=== PATIENT | female | born 1955 | race Caucasian/White ===

== ENCOUNTER 2019-08-15 10:49 | Outpatient (RCR) | payer BC, SELFPAY ==
[2019-08-15 10:56] VITALS: BMI 55.0
[2019-08-15 10:57] VITALS: BMI 55.0
== END 2019-11-13 23:59 | disposition home or self-care (01) ==
LOC: ANHDMC 10:49
PROVIDERS: PCP Family Medicine Adolescent Medicine; Visit Provider Family Medicine Adolescent Medicine
DX: E11.42 Type 2 diabetes mellitus with diabetic polyneuropathy (principal); Z71.3 Dietary counseling and surveillance
CPT/HCPCS: 97802

== ENCOUNTER 2019-10-18 09:02 | Outpatient (CLI) | payer BC, SELFPAY ==
--- NOTE | 2019-10-21 12:52 | WPDPFTINT ---
PFT Interpretation PFT Interpretation: DOS: 10/18/2019 REQUESTING: Dr. Menard REASON FOR TESTING: wheezing PULMONARY FUNCTION TESTS Spirometry: FEV1 66%, mildly decreased. FVC 62%, mildly decreased. FEV1% is 78%, normal. RSN40-56% is 41%, severely decreased. There is a 37% increase in small airways flows with bronchodilator. Lung volumes: TLC 83%, normal. RV/TLC is increased consistent with air trapping. Normal airway resistance. Diffusion: DLCO is 71%, mildly decreased. Flow volume loop: Scooping of the expiratory limb. IMPRESSION: Small airways pattern with robust response to bronchodilator, air trapping and mild decreased in diffusion. In the proper clinical setting, this pattern may be seen in asthma. Clinical correlation is recommended. Jeana Aguirre MD
== END 2019-10-18 09:03 | disposition home or self-care (01) ==
LOC: ANHPFT 09:03
PROVIDERS: PCP Family Medicine Adolescent Medicine; Visit Provider Family Medicine Adolescent Medicine
DX: R06.2 Wheezing (principal); R94.2 Abnormal results of pulmonary function studies
CPT/HCPCS: 94060; 94726; 94729

== ENCOUNTER 2019-10-23 13:55 | Outpatient (CLI) | payer BC, SELFPAY ==
--- NOTE | ~2019-10-23 | US_ITS ---
EXAMINATION: US arterial ankle brachial ind DATE: 10/23/2019 14:45 INDICATION: Claudication. Numbness and tingling. Diabetes. Bilateral ankle swelling, right greater t qureshi left. TECHNIQUE: Segmental pressures and plethysmographic and Doppler waveforms of the brachial and lower e xtremity arteries were obtained. COMPARISON: None. FINDINGS: Right and left brachial artery pressures of 185 mm Hg and 175 mm Hg, respectively, are concordant (no rmal difference <= 30 mmHg). The right ankle-brachial index (DONNA) is 0.90 (normal >= 0.9-1.0). The right great toe-brachial index (TBI) is 0.66 (normal >= 0.65). Arterial Doppler waveforms are biphasic. The left DONNA is 0.92. The left TBI is 0.62. Arterial Doppler waveforms are biphasic. IMPRESSION: Right and left DONNA of 0.90 and 0.92, within normal limits Normal right TBI: 0.66 Mildly decreased left TBI: 0.62 Reviewed, dictated and finalized at [facility]. Reviewed, dictated and finalized at location B.
== END 2019-10-23 13:56 | disposition home or self-care (01) ==
PROVIDERS: PCP Family Medicine Adolescent Medicine; Visit Provider Orthopaedic Surgery
DX: I73.9 Peripheral vascular disease, unspecified (principal)
CPT/HCPCS: 93922

== ENCOUNTER 2019-11-21 10:47 | Outpatient (RCR) | payer BC, SELFPAY ==
[2019-11-21 10:56] VITALS: BMI 48.5
== END 2020-02-10 09:39 | disposition home or self-care (01) ==
LOC: ANHDMC 10:47
PROVIDERS: PCP Family Medicine Adolescent Medicine; Visit Provider Family Medicine Adolescent Medicine
DX: E11.42 Type 2 diabetes mellitus with diabetic polyneuropathy (principal); Z71.3 Dietary counseling and surveillance
CPT/HCPCS: 97803

== ENCOUNTER 2019-12-11 08:41 | Outpatient (CLI) | payer BC, SELFPAY ==
--- NOTE | 2019-12-11 11:00 | NEURO_ITS ---
Patient Number: [id number] Impression: # Known diabetic complains of numbness. Patient has severe bilateral edema. # Neuropathy with more involvement of peroneal nerves. # Abnormal limited (due to edema) needle/EMG exam. # Study is limited due to edema. # Clinical correlation recommended. Nerve Conduction Studies Anti Sensory Summary Table Stim Site NR Peak (ms) P-T Amp (?V) Site1 Site2 Delta-P (ms) Dist (cm) Curtis (m/s) Left Sup Fibular Anti Sensory (Ant Lat Mall) 14 cm 4.6 10.5 14 cm Ant Lat Mall 4.6 16.0 35 Right Sup Fibular Anti Sensory (Ant Lat Mall) 14 cm 4.0 6.0 14 cm Ant Lat Mall 4.0 16.0 40 Left Sural Anti Sensory (Lat Mall) Calf 3.5 18.5 Calf Lat Mall 3.5 16.0 46 Right Sural Anti Sensory (Lat Mall) Calf 3.9 9.5 Calf Lat Mall 3.9 16.0 41 Motor Summary Table Stim Site NR Onset (ms) O-P Amp (mV) Site1 Site2 Delta-0 (ms) Dist (cm) Curtis (m/s) Left Peroneal Motor (Vastus Med) NO RESPONSE Ankle NR Popit Ankle 0.0 Popit NR Right Peroneal Motor (Vastus Med) NO RESPONSE Ankle NR Popit NR Left Tibial Motor (Abd Eid Brev) Ankle 4.4 1.0 Knee Ankle 0.0 Knee NR Right Tibial Motor (Abd Eid Brev) Ankle 4.6 1.9 Knee Ankle 11.1 39.0 35 Knee 15.7 0.6 F Wave Studies NR F-Lat (ms) L-R F-Lat (ms) Left Peroneal (Mrkrs) (EDB) DISPERSED RESPONSE NR Right Peroneal (Mrkrs) (EDB) NO RESPONSE NR Left Tibial (Mrkrs) (Abd Hallucis) DISPERSED RESPONSE NR Right Tibial (Mrkrs) (Abd Hallucis) 58.83 EMG Side Muscle Nerve Root Ins Act Fibs Amp Dur Recrt Comment Right AntTibialis Dp Br Fibular L4-5 Nml Nml Nml Nml Reduced Right Gastroc Tibial S1-2 Nml Nml Nml Nml Reduced Right Ext Dig Brev Dp Br Fibular L5, S1 Nml Nml Nml Nml Reduced Left AntTibialis Dp Br Fibular L4-5 Nml Nml Nml Nml Reduced Left Gastroc Tibial S1-2 Nml Nml Nml Nml Reduced Left Ext Dig Brev Dp Br Fibular L5, S1 Nml Nml Nml Nml Reduced MTDD
== END 2019-12-11 08:42 | disposition home or self-care (01) ==
PROVIDERS: PCP Family Medicine Adolescent Medicine; Visit Provider Orthopaedic Surgery
DX: G62.9 Polyneuropathy, unspecified (principal); R60.0 Localized edema; E11.9 Type 2 diabetes mellitus without complications
CPT/HCPCS: 95885; 95910

== ENCOUNTER → 2020-04-06 15:44 | Outpatient (CLI) | payer BC, SELFPAY ==
--- NOTE | ~2020-04-06 | XR_ITS ---
EXAMINATION: XR hip LT min 2V DATE: 04/07/2020 09:19 INDICATION: Left hip pain. TECHNIQUE: 2 views of left hip on 3 radiographs were obtained. COMPARISON: None. FINDINGS: Bone alignment is normal. No fracture. There is mild left hip osteoarthritis. IMPRESSION: 1. Mild left hip osteoarthritis. Reviewed, dictated and finalized at location A. ADVISOR
== END ==
PROVIDERS: PCP Family Medicine Adolescent Medicine; Visit Provider Family Medicine Adolescent Medicine
DX: M16.12 Unilateral primary osteoarthritis, left hip (principal)
CPT/HCPCS: 73502

== ENCOUNTER 2020-07-04 14:10 | Emergency (ER) | payer MEDICARE, SELFPAY ==
--- NOTE | ~2020-07-04 | CT_ITS ---
EXAMINATION: CT brain wo con DATE: 07/04/2020 14:36 INDICATION: Head injury. TECHNIQUE: Computed tomography (CT) of the head was performed without intravenous contrast. The mA wa s adjusted according to patient size. Iterative reconstruction technique was employed. The dose-lengt h product was 605.33 mGy-cm. COMPARISON: None FINDINGS: There is no intracranial hemorrhage, acute infarction, or abnormal intracranial mass lesion . The ventricles are normal in size. There is an anterior scalp hematoma. There are likely changes of ocular lens replacement surgeries. There is mild mucosal thickening in the ethmoid sinuses. There ar e small bilateral mastoid effusions. IMPRESSION: 1. Normal brain. Reviewed, dictated and finalized at location A. IMPRESSION: 1. Normal brain.
[2020-07-04 14:01] VITALS: BP 183/92; PULSE 102; RESP 19; TEMP 36.2; O2SAT 94
[2020-07-04] MEDS: HYDROcodone/acetaminophen (*CRX) 5-325 MG TABLET 1 TAB PO (14:45)
--- NOTE | 2020-07-04 15:31 | ED.FALL ---
HPI - Fall General Chief Complaint: Fall Stated Complaint: fall - YANG Time Seen by Provider: 07/04/20 14:12 History of Present Illness HPI Narrative: Patient is a 65-year-old female who presents ER after a trip and fall. 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 She struck her head. She did not lose consciousness. She has abrasions over her forehead and a large hematoma. She opted to come to the ER because after the fall she began to feel dizzy. No nausea or vomiting. No lateralizing weakness or numbness. No change in vision or hearing. Related Data Home Medications Medication Instructions Recorded Confirmed diclofenac sodium 75 mg 75 mg PO BID 10/29/19 tablet,delayed release metformin 500 mg tablet 1,000 mg PO BID tablet 10/29/19 nortriptyline 50 mg capsule 50 mg PO DAILY 10/29/19 prednisone 10 mg tablet 10 mg PO DAILY 10/29/19 pregabalin 200 mg capsule 200 mg PO BID 10/29/19 tramadol 50 mg tablet 50 mg PO Q6H PRN 10/29/19 Allergies Allergy/AdvReac Type Severity Reaction Status Date / Time No Known Allergies Allergy Unverified 07/04/20 14:08 Review of Systems Review of Systems: All systems reviewed & are unremarkable except as noted in HPI and below Constitutional: Constitutional: Denies chills, Denies fever(s) and Denies weakness Eyes: Eyes: Denies change in vision and Denies photophobia Neurologic: Denies confusion, Reports dizziness, Denies syncope, Reports headache(s), Denies focal weakness and Denies numbness [facility] Past Medical History Medical History (Updated 07/04/20 @ 15:33 by Gildardo Garcia MD) Arterial insufficiency of lower extremity Arthritis Burning pain when urinating Cellulitis Constipation Diabetes Diarrhea Dizziness Glaucoma Headache Left ankle pain Nausea & vomiting Peripheral neuropathy due to metabolic disorder Pneumonia Shortness of breath Venous stasis dermatitis of both lower extremities Vertigo Vision abnormalities Weight gain Surgical History Surgical History (Updated 10/29/19 @ 09:31 by Rachael Michel RT(R)) H/O: hysterectomy History of cataract surgery History of cholecystectomy History of left knee surgery TKA 2009 History of right knee surgery TKA 2007 Family History Family History (Updated 10/29/19 @ 10:27 by Rachael Michel RT(R)) Father Family history of cardiovascular disease Father Vascular insufficiency Other Arthritis Diabetes mellitus Hypertension Malignant neoplasm Social History Social History Smoking status: Never smoker Alcohol intake: never Spiritual care concerns: No Exam Narrative: Exam Narrative: GENERAL: Well-appearing, well-nourished, and in no acute distress. HEAD: Normocephalic, large hematoma over the midline forehead. Abrasions overlying hematoma. EYES: PERRL and EOMI. Bruising developing medially in the nose and in the upper eyelids. ENT: Mucous membranes moist. No epistaxis. No nasal deformity. NECK: Supple. No midline tenderness. CHEST: Clear to auscultation. No respiratory distress. HEART: Regular rate and rhythm. No murmur heard. Normal peripheral pulses. EXTREMITIES: Normal range of motion. No edema. NEURO: Alert and oriented x3. PSYCH: Normal mood and affect. Course Course Emergency Course: Patient aware of diagnosis and treatment plan. Verbalized understanding. Discharge home. Vital Signs Vital signs: Vital Signs Temperature 97.1 F L 07/04/20 14:01 Pulse Rate 102 H 07/04/20 14:01 Respiratory Rate 19 07/04/20 14:01 Blood Pressure 183/92 H 07/04/20 14:01 Pulse Oximetry 94 07/04/20 14:01 Temperature 97.1 F L 07/04/20 14:01 Pulse Rate 96 07/04/20 15:47 Respiratory Rate 20 07/04/20 15:47 Blood Pressure 182/75 H 07/04/20 15:47 Pulse Oximetry 94 07/04/20 15:47 MDM - Fall Imaging Data Radiologist's imp
[2020-07-04 15:47] VITALS: BP 182/75; PULSE 96; RESP 20; O2SAT 94
== END 2020-07-04 15:49 | disposition home or self-care (01) ==
PROVIDERS: Emergency Provider Emergency Medicine; PCP Family Medicine Adolescent Medicine
DX: S00.83XA Contusion of other part of head, initial encounter (principal); E11.42 Type 2 diabetes mellitus with diabetic polyneuropathy; M19.90 Unspecified osteoarthritis, unspecified site; H40.9 Unspecified glaucoma; I87.2 Venous insufficiency (chronic) (peripheral); Z98.49 Cataract extraction status, unspecified eye; Z96.653 Presence of artificial knee joint, bilateral; W18.09XA Striking against other object with subsequent fall, initial encounter; Z79.84 Long term (current) use of oral hypoglycemic drugs
CPT/HCPCS: 70450; 99284; A9270

== ENCOUNTER → 2021-06-25 11:22 | Outpatient (CLI) | payer MEDICARE, SELFPAY ==
--- NOTE | ~2021-06-25 | XR_ITS ---
XR chest 2V DATE: 06/25/2021 11:52 INDICATION: Shortness of breath TECHNIQUE: 2 views COMPARISON: 02/08/2018 two-view chest FINDINGS: There is cardiomegaly. There is aortic arch calcification. There is pulmonary vascular congestion and redistribution. No pulmonary infiltrate or consolidation, pleural effusion or pneumothorax. IMPRESSION: Cardiomegaly, pulmonary vascular congestion, consistent with mild congestive heart failur e Reviewed, dictated and finalized at location A. IMPRESSION: Cardiomegaly, pulmonary vascular congestion, consistent with mild c ongestive heart failure
== END ==
PROVIDERS: Visit Provider Physician Assistant
DX: R06.02 Shortness of breath (principal); I51.7 Cardiomegaly
CPT/HCPCS: 71046

== ENCOUNTER 2021-10-27 17:52 | Emergency (ER) | payer MEDICARE, SELFPAY ==
--- NOTE | ~2021-10-27 | CT_ITS ---
EXAMINATION: CT abdomen pelvis w con DATE: 10/27/2021 20:00 INDICATION: upper abdominal pain, vomiting TECHNIQUE: Computed tomography (CT) of the abdomen and pelvis was performed with 100 mL Omnipaque-300 intravenous contrast. Automated exposure control and iterative reconstruction technique were employe d. The dose-length product was 1664.90 mGy-cm. COMPARISON: 05/30/2016. FINDINGS: Lower thorax: Cardiomegaly Liver: Hepatomegaly. Biliary/Gallbladder: Gallbladder is absent. No bile duct dilation. Pancreas: Fatty infiltration. Spleen: Normal. Adrenals:No mass. Kidneys: No mass, stone, or hydronephrosis. GI tract: No small or large bowel dilation. Normal appendix. Mesentery/Peritoneum: No ascites, mass, or free air. Retroperitoneum: No mass. Pelvis: Pelvic organs are within normal limits. Soft Tissues: Soft tissues and body wall unremarkable. Bones: No acute osseous finding. IMPRESSION: No acute abdominopelvic process detected. Reviewed, dictated and finalized at location K.
--- NOTE | ~2021-10-27 | XR_ITS ---
EXAMINATION: XR chest 1V portable Exam Date/Time: 10/27/2021 22:50 CDT HISTORY: BACK PAIN AND RECENT PNE. Comparison: 06/25/2021. RESULT: Lines, tubes, and devices: None. Lungs and pleura: Clear. Cardiomediastinal silhouette: Stable. Other: No acute osseous or upper abdominal finding. IMPRESSION: No acute cardiopulmonary process. Reviewed, dictated and finalized at location K.
[2021-10-27 17:54] VITALS: BP 180/89; PULSE 122; RESP 19; TEMP 36.7; O2SAT 100
--- NOTE | 2021-10-27 18:11 | ED.ABDPAIN ---
HPI - Abdominal Pain General Chief Complaint: Abdominal Pain Stated Complaint: abd pain Time Seen by Provider: 10/27/21 17:55 History of Present Illness HPI narrative: Patient is a 66-year-old female with a history of HTN, DM, COVID pneumonia Feb on home O2, here via EMS for evaluation of upper abdominal pain for the past 4 days. Patient states the pain is constant in nature, is across her upper abdomen and also in her right flank. Denies alleviating factors, notes that pain is worse with movement. She called an ambulance today, and vomited en route, which she attributes to the bumpy ride. She denies any changes to her stools, fevers, chills, chest pain, shortness of breath, diaphoresis, headaches. She has never had a pain like this in the past. Related Data Home Medications Medication Instructions Recorded Confirmed aspirin 81 mg tablet,delayed 81 mg PO DAILY 04/23/21 09/14/21 release (Adult Low Dose Aspirin) hydroxychloroquine 200 mg tablet 200 mg PO BID 04/23/21 09/14/21 Allergies Allergy/AdvReac Type Severity Reaction Status Date / Time amlodipine Allergy Mild periorbital Verified 10/27/21 18:03 blisters and blurry vision Review of Systems Review of Systems: Gen: Denies fevers or chills Eyes: Denies eye pain or visual change ENT: Denies congestion Respiratory: Denies shortness of breath or cough CV: Denies chest pain or palpitations GI: Reports abdominal pain and emesis. : denies burning, urgency, frequency or hematuria Musculoskeletal: Denies back pain or muscle pain Neuro: Denies numbness, tingling, weakness or focal weakness Skin: Denies rash Except as documented, all other systems reviewed and negative [facility] Past Medical History Medical History Arterial insufficiency of lower extremity Arthritis Burning pain when urinating Cellulitis Constipation Diabetes Diarrhea Dizziness Glaucoma History of COVID-19 Hypertension Long-term use of aspirin therapy Mild persistent asthma Peripheral neuropathy due to metabolic disorder Pneumonia Posterior vitreous detachment of both eyes Primary open-angle glaucoma, bilateral, mild stage Pseudophakia, both eyes Rheumatoid arthritis Type 2 diabetes mellitus with polyneuropathy Venous stasis dermatitis of both lower extremities Vertigo Vision abnormalities Weight gain Surgical History Surgical History H/O: hysterectomy History of cataract surgery History of cholecystectomy History of left knee surgery TKA 2009 History of right knee surgery TKA 2007 Family History Family History Father Family history of cardiovascular disease Father Vascular insufficiency Other Arthritis Diabetes mellitus Hypertension Malignant neoplasm Social History Social History Smoking status: Never smoker Second hand tobacco smoke exposure: No Alcohol intake: never Substance use: never Substance use type: does not use Gender identity (if verbalized by the patient): Female Sexual Orientation (if Verbalized by the Patient): Straight or Heterosexual Spiritual care concerns: No Agree to blood products: Yes Exam Narrative: APPEARANCE: Well appearing, no pain in distress. Obese Head: Normocephalic and atraumatic. EYES: PERRLA/EOMI, conjunctivae clear NOSE: No nasal drainage EARS: External ear normal in appearance THROAT: Oropharynx is clear. Mucous membranes are moist. NECK: Supple. No adenopathy, no masses. RESPIRATORY: Airway patent, respirations nonlabored. Clear to auscultation bilaterally, no rales, rhonchi, wheezing. CARDIOVASCULAR: Palpable DP and PT pulses bilaterally. Tachycardic. Regular rhythm without murmurs, rubs, or gallops. ABDOMINAL: Diffusely tender across entire abdomen.
--- NOTE | 2021-10-27 18:15 | ECG_ITS ---
Measurements Intervals [place] Rate: 100 P: 41 MA: 164 QRS: 3 QRSD: 92 T: 31 QT: 332 QTc: 430 Interpretive Statements SINUS TACHYCARDIA BORDERLINE R WAVE PROGRESSION, ANTERIOR LEADS BORDERLINE ECG Electronically Signed On 10-27-2021 19:27:11 CDT by Arnaldo Dumont D.O.
[2021-10-27 18:31] LABS: Basophils Percent Auto 0.3 % (0.2-1.2); Eosinophils Absolute Auto 0.2 K/mm3 (0-0.3); Eosinophils Percent Auto 1.3 % (0-4.4); Hematocrit 44.9 % (37.0-47.0); Hemoglobin 13.9 g/dL (12.0-15.0); Immature Granulocyte Absolute 0.02 K/mm3 (0.00-0.031); Immature Granulocyte Percent A 0.2 % (0-0.5); Immature Platelet Fraction Pct 3.8 % (0.9-11.2); Lymphocytes Percent Auto 2.6 % (18.3-44.2); Mean Corpuscular Hemoglobin 28.9 pg (26-34); Mean Corpuscular Volume 93.3 fl (80-100); Mean Platelet Volume 10.8 fl (7.4-10.4); Monocytes Absolute Auto 0.2 K/mm3 (0.1-0.6); Monocytes Percent Auto 1.9 % (2.6-8.5); Neutrophils Absolute Auto 10.7 K/mm3 (1.3-6.7); Neutrophils Percent Auto 93.7 % (45.5-73.1); Platelet Count Result 219 k/mm3 (150-375); Red Blood Count 4.81 M/mm3 (4.2-5.4); Red Cell Distribution Width 13.8 % (11.5-14.5); White Blood Count 11.4 K/mm3 (4.5-10.0)
[2021-10-27] MEDS: ONDANSETRON INJ 4 MG/2 ML VIAL IV PUSH ×2 (18:32→21:44)
[2021-10-27] MEDS: SODIUM CHLORIDE 0.9% IV 1,000 ML 999 ML IV CONT (18:33)
[2021-10-27 18:42] LABS: Lactic Acid Reflex 1.7 mmol/L (0.7-2.0)
[2021-10-27 19:25] LABS: Alanine Aminotransferase 19 U/L (6-35); Albumin Level 3.9 g/dL (3.5-5.1); Alkaline Phosphatase 152 U/L (38-126); Anion Gap 8 mmol/L (8-16); Aspartate Amino Transferase 21 U/L (14-36); Bilirubin,Total 0.4 mg/dL (0.2-1.3); Blood Urea Nitrogen 18 mg/dL (7-17); Calcium 8.4 mg/dL (8.4-10.2); Carbon Dioxide 32 mmol/L (22-30); Chloride 103 mmol/L (98-107); Estimated CRCL calculation 91 ml/min; Estimated Glomerular Filt Rate > 60; Glucose 206 mg/dL (65-110); Lipase 58 U/L (23-300); Potassium 5.1 mmol/L (3.4-5.0); Sodium 143 mmol/L (137-145)
[2021-10-27 20:17] LABS: Appearance Urine Clear (Clear); Bilirubin Urine Negative (Negative); Blood Urine Negative (Negative); Color Urine Yellow (Yellow); Glucose Urine UA Negative (Negative); Ketones Urine 1+ mg/dL (Negative); Leukocyte Esterase Ur Negative LEU/UL (Negative); Nitrate Urine Negative (Negative); Protein Urine Negative (Negative)
[2021-10-27 20:34] LABS: Bacteria Urine Trace /hpf; RBC Urine 0-2 /hpf (0-2); Squamous Epithelial Cell Urine Few /hpf (Few); WBC Urine 0-3 /hpf
[2021-10-27 20:41] LABS: Add Urine Microscopic? YES
[2021-10-27 20:56] LABS: Troponin I < 0.012 ng/mL (0.000-0.034)
[2021-10-27 21:17] LABS: Potassium 4.7 mmol/L (3.4-5.0)
[2021-10-27 21:47] VITALS: BP 158/71; PULSE 100; RESP 18; O2SAT 92
[2021-10-27 23:39] VITALS: BP 141/72; PULSE 95; RESP 18; O2SAT 95
== END 2021-10-27 23:40 | disposition home or self-care (01) ==
PROVIDERS: Physician Assistant; Emergency Provider Emergency Medicine; PCP Family Medicine Adolescent Medicine
DX: R11.2 Nausea with vomiting, unspecified (principal); R00.0 Tachycardia, unspecified; M19.90 Unspecified osteoarthritis, unspecified site; E11.9 Type 2 diabetes mellitus without complications; I10 Essential (primary) hypertension; J45.909 Unspecified asthma, uncomplicated; Z86.16 Personal history of COVID-19
CPT/HCPCS: 36415; 71045; 74177; 80053; 81001; 83605; 83690; 84132; 84484; 85025; 85055; 93005; 96361; 96374; 96376; 99284; J2405; J7030; Q9967

== ENCOUNTER → 2022-02-07 15:55 | Outpatient (CLI) | payer MEDICARE, SELFPAY ==
--- NOTE | ~2022-02-07 | XR_ITS ---
XR lumbar spine 2-3V DATE: 02/07/2022 16:17 INDICATION: Low back pain TECHNIQUE: AP, lateral, coned lateral lumbosacral views COMPARISON: 10/16/2013 MRI lumbar spine 10/07/2013 lumbar spine FINDINGS: Prominent bridging osteophyte formation along the lower thoracic spine. Degenerative changes apophyseal joints with associated grade 1 anterolisthesis at L4-5. There is severe degenerative disc disease at L5-S1. There is mild to moderate degenerative disease of the remaining lumbar interspaces. No fracture or bone destruction is evident. Lumbar pedicles are intact. The sacroiliac joints are nor mal. IMPRESSION: Multilevel degenerative disc disease, severe at L5-S1 Degenerative changes apophyseal joints with associated grade 1 anterolisthesis at L4-5 and prominent bridging osteophytes of the lower thoracic spine Reviewed, dictated and finalized at location A. F PRIVACY OFFICER
== END ==
PROVIDERS: PCP Family Medicine Adolescent Medicine; Visit Provider Physician Assistant
DX: M51.37 Other intervertebral disc degeneration, lumbosacral region (principal)
CPT/HCPCS: 72100

== ENCOUNTER 2022-03-29 14:26 | Outpatient (CLI) | payer MEDICARE, SELFPAY ==
[2022-03-29 14:35] VITALS: PULSE 84; O2SAT 87
[2022-03-29 14:40] VITALS: PULSE 86; O2SAT 90
[2022-03-29 14:45] VITALS: PULSE 88; O2SAT 90
[2022-03-29 14:50] VITALS: PULSE 83; O2SAT 87
[2022-03-29 15:00] VITALS: PULSE 88; O2SAT 90
--- NOTE | 2022-03-29 15:47 | HOMEO2EVAL ---
Evaluation was performed at [facility] Home Oxygen Evaluation RC: Home Oxygen (O2) Evaluation Start: 03/29/22 15:41 Freq: Status: Active Protocol: RPE Activity Type Activity Date Activity User E-sign Co-sign Detail Recorded Client Recorded Date Recorded By Document 03/29/22 14:35 PKH [email or web address] 03/29/22 15:46 PKH Document 03/29/22 14:40 [email or web address] [email or web address] 03/29/22 15:46 PKH Document 03/29/22 14:45 PKH [email or web address] 03/29/22 15:46 PKH Document 03/29/22 14:50 [email or web address] [email or web address] 03/29/22 15:46 PKH Document 03/29/22 15:00 PK [email or web address] 03/29/22 15:46 PKH 03/29/22 03/29/22 03/29/22 14:35 14:40 14:45 Home O2 Evaluation [Oxygen] -Test Phase Resting Resting Exercise -Oxygen Delivery Room Air Nasal Cannula Nasal Cannula -Oxygen Flow Rate (L/min) 1 2 [Pulse Oximetry] -Pulse Oximetry (90-100 %) 87 L 90 90 [Pulse Rate] -Pulse Rate (60-100 beats/min) 84 86 88 [Evaluation] -Activity Tolerance 03/29/22 03/29/22 14:50 15:00 Home O2 Evaluation [Oxygen] -Test Phase Exercise Resting -Oxygen Delivery Nasal Cannula Nasal Cannula -Oxygen Flow Rate (L/min) 1 1 [Pulse Oximetry] -Pulse Oximetry (90-100 %) 87 L 90 [Pulse Rate] -Pulse Rate (60-100 beats/min) 83 88 [Evaluation] -Activity Tolerance Good
--- NOTE | 2022-03-30 09:39 | WPDPFTINT ---
PFT Procedure Performed PFT Procedure Performed Spirometry with Pre/Post Bronchodilator Plethysmography (Lung Vol) Diffusing Cap (DLCO) Flow Vol Loop PFT Interpretation Lung volumes were measured with the body plethysmography method. Lung volumes are unremarkable. Spirometry showed diminished expiratory flow rates and a normal FEV1 to FVC ratio 73%. Following administration of a bronchodilator there was no significant increase in expiratory flow rates. The flow volume loop is consistent with suboptimal effort. Lung diffusion capacity is moderately reduced at 46% predicted. Impression: Nonspecific pattern. Moderately reduced lung diffusion capacity.
== END 2022-03-29 14:27 | disposition home or self-care (01) ==
LOC: ANHPFT 14:27
PROVIDERS: PCP Family Medicine Adolescent Medicine; Visit Provider Internal Medicine Pulmonary Disease
DX: R06.02 Shortness of breath (principal); U09.9 Post COVID-19 condition, unspecified
CPT/HCPCS: 94060; 94726; 94729

== ENCOUNTER 2022-06-07 14:15 | Outpatient (RCR) | payer MEDICARE, SELFPAY ==
[2022-04-05 09:27] VITALS: BMI 58.6
[2022-04-05 10:33] VITALS: BMI 58.6
== END 2022-06-20 13:51 | disposition home or self-care (01) ==
LOC: ANHDMC 14:15
PROVIDERS: PCP Family Medicine Adolescent Medicine; Visit Provider Physician Assistant
DX: E11.42 Type 2 diabetes mellitus with diabetic polyneuropathy (principal); E66.01 Morbid (severe) obesity due to excess calories; Z68.43 Body mass index [BMI] 50.0-59.9, adult; Z71.3 Dietary counseling and surveillance; Z71.89 Other specified counseling
CPT/HCPCS: 97802; G0108

== ENCOUNTER 2022-07-20 10:23 | Outpatient (RCR) | payer MEDICARE, SELFPAY | END 2022-10-03 09:05 | disposition home or self-care (01) | LOC: ANHDMC 10:23 | PROVIDERS: PCP Family Medicine Adolescent Medicine; Visit Provider Physician Assistant | DX: E11.42 Type 2 diabetes mellitus with diabetic polyneuropathy (principal); E66.01 Morbid (severe) obesity due to excess calories; Z68.43 Body mass index [BMI] 50.0-59.9, adult; Z71.89 Other specified counseling | CPT/HCPCS: G0108 ==

== ENCOUNTER 2022-09-26 14:25 | Outpatient (CLI) | payer MEDICARE, SELFPAY ==
--- NOTE | ~2022-09-26 | CT_ITS ---
EXAMINATION: CT knee RT wo con DATE: 09/26/2022 14:57 INDICATION: Right knee pain TECHNIQUE: High resolution computed tomography (CT) of the right knee was performed without intraveno us contrast. Additional sagittal and coronal reconstructions were performed. The dose-length product was 580.89 mGy-cm. COMPARISON: Right knee radiographs dated 09/22/2006 FINDINGS: Cemented right total knee arthroplasty with patellar resurfacing which remains in near-anatomic align ment. No fracture. No periprosthetic lucency or change in position to suggest loosening. Some heterot opic ossification along the margins of the tibial component, the medial margin of the patella and bry ng the medial and posterior medial metaphyseal regions of the proximal tibia. There are also small en thesophytes along the patella and at the tibial insertion of the patellar tendon. No knee joint effus ion. Tiny heterotopic ossicles along a surgical scar anterior to the knee and in the subcutaneous fat posterior and medial to the knee. There is subcutaneous edema in the visualized proximal calf and po steriorly in the distal thigh. IMPRESSION: 1. Right total knee arthroplasty with patellar resurfacing which remains in near-anatomic alignment w ith no knee joint effusion or acute osseous abnormality. Reviewed, dictated and finalized at location A. IMPRESSION: 1. Right total knee arthroplasty with patellar resurfacing which remains in asha r-anatomic alignment with no knee joint effusion or acute osseous abnormality.
== END 2022-09-26 14:26 | disposition home or self-care (01) ==
PROVIDERS: PCP Family Medicine Adolescent Medicine; Visit Provider Orthopaedic Surgery
DX: M25.561 Pain in right knee (principal)
CPT/HCPCS: 73700

== ENCOUNTER 2022-10-03 17:18 | Outpatient (NON) | payer MEDICARE, SELFPAY ==
[2022-10-03 18:58] LABS: Color Synovial Fluid Colorless (Colorless); Crystals Synovial Fluid None Seen (None Seen); Source Synovial Fluid Synovial fluid
[2022-10-03 18:59] LABS: Appearance Synovial Fluid Hazy (Clear); Lymphocytes Synovial Fluid 88 %; Macrophages Synovial Fluid 1 %; Monocytes Synovial Fluid 9 %; Neutrophils Synovial Fluid 0 % (0-25); Nucleated Cell Synovial Fluid 1129 /uL (0-200); Other Cells Synovial Fluid 2 %; RBC Synovial Fluid 2000 /uL (0-0)
== END 2022-10-03 17:19 | disposition home or self-care (01) ==
LOC: ANHLAB 17:21
PROVIDERS: PCP Family Medicine Adolescent Medicine; Visit Provider Orthopaedic Surgery
DX: M25.461 Effusion, right knee (principal); Z96.651 Presence of right artificial knee joint
CPT/HCPCS: 87070; 87075; 87205; 89051; 89060

== ENCOUNTER → 2022-11-23 14:00 | Outpatient (CLI) | payer MEDICARE, SELFPAY ==
--- NOTE | ~2022-11-23 | US_ITS ---
EXAMINATION: US soft tissue abdomen DATE: 11/23/2022 14:29 INDICATION: Incisional hernia without obstruction or gangrene with large mass like area at the mid pe lvis TECHNIQUE: Multiple grayscale and Doppler ultrasound images of the anterior lower abdominal/pelvic wa ll were obtained. COMPARISON: CT abdomen and pelvis dated 10/27/2021 FINDINGS: There is posterior acoustic shadowing resulting from superficial subcutaneous edema at the region of concern. No discrete abnormal masses or fluid collections identified. The underlying abdominal wall i s not clearly identified precluding assessment for ventral hernia. No hernia is identified at the sit e of a thin section scar extending transversely across the intrapelvic wall on the CT from one year p rior. IMPRESSION: 1. Limited study of the deeper soft tissues at the region of concern due to combination patient body habitus and subcutaneous edema. No abnormal masses or fluid collections identified. If clinically ind icated would consider further evaluation with CT for more definitive determination. Reviewed, dictated and finalized at location A. IMPRESSION: 1. Limited study of the deeper soft tissues at the region of concern due to com bination patient body habitus and subcutaneous edema. No abnormal masses or flu id collections identified. If clinically indicated would consider further evalu ation with CT for more definitive determination.
== END ==
PROVIDERS: PCP Nurse Practitioner Family; Visit Provider Nurse Practitioner Family
DX: K43.2 Incisional hernia without obstruction or gangrene (principal)
CPT/HCPCS: 76705

== ENCOUNTER 2022-12-16 08:06 | Outpatient (CLI) | payer MEDICARE, SELFPAY ==
--- NOTE | ~2022-12-16 | CT_ITS ---
CT of the Abdomen and Pelvis: Indication: Abdominal Technique: 2.5 mm axial scans were obtained through the abdomen and pelvis following intravenous adm inistration of 100 cc of Omnipaque 350. Dose reduction technique was used on this scan by utilizing a utomated exposure control and iterative reconstruction technique. The dose-length product (DLP) was 1 739.80 mGy-cm. COMPARISON: 10/27/2021 Findings: Scans through the lung bases are unremarkable. The liver, spleen, pancreas, adrenals and kidneys are within normal limits. Cholecystectomy clips are present. No evidence of aortic aneurysm. No lymphadenopathy. No bowel obstruction or bowel wall thickening. There is no evidence to suggest acute appendicitis. Images through the pelvis were performed. Urinary bladder unremarkable. No adnexal mass seen. No asci maximilian. Impression: No significant abnormalities seen. Reviewed, dictated and finalized at [facility]. Impression: No significant abnormalities seen.
[2022-12-16 08:39] LABS: Estimated Glomerular Filt Rate 50
== END 2022-12-16 08:07 | disposition home or self-care (01) ==
PROVIDERS: PCP Family Medicine Adolescent Medicine; Visit Provider Physician Assistant Surgical
DX: K43.2 Incisional hernia without obstruction or gangrene (principal); E65 Localized adiposity
CPT/HCPCS: 74177; Q9967

== ENCOUNTER 2022-12-19 12:05 | Outpatient (CLI) | payer MEDICARE, SELFPAY ==
--- NOTE | 2022-12-19 14:31 | PCRCNOTE ---
METHACHOLINE CHALLENGE NOT DONE, PT FEV1 50-52%. THIS IS A CONTRAINDICATION. RAH ALFONSO NOTIFIED. PFT PRE/POST COMPLETED.
--- NOTE | 2022-12-20 06:59 | P.PCNPFT_ITS ---
PFT Procedure Performed PFT Procedure Performed Spirometry with Pre/Post Bronchodilator Plethysmography (Lung Vol) Diffusing Cap (DLCO) Flow Vol Loop PFT Interpretation This is a pulmonary function test with pre and post-bronchodilator spirometry, plethysmography and diffusing capacity. The test was performed and results interpreted in accordance with the 2019 and 2005 ATS/ERS Task Force guidelines respectively using the Global Lung Function Initiative-2012 reference equations. Patient demonstrated good effort and cooperation. Reproducibility criteria were met. The quality of the pre bronchodilator spirometry maneuver was Grade A and post bronchodilator spirometry maneuver was Grade B. of note the patient was scheduled for a methacholine challenge test but was unable to perform due to low FEV1% on baseline spirometry. Maru see notified, PFTs pre and post completed. Findings: Spirometry: There is decreased maximal expiratory airflow at low lung volumes with concave expiratory flow tracing. The contour the inspiratory flow tracing is normal. The pre bronchodilator FVC is 1.66 L, 56% predicted. The pre bronchodilator FEV1 is 1.21 L, 52% predicted. The pre bronchodilator FEV1: FVC ratio is 73%. The post bronchodilator FVC is 1.84 L, representing an 11% increase. The post bronchodilator FEV1 is 1.35 L, representing 130 mL increase which corresponds to a 12% increase. The post bronchodilator FEV1: FVC ratio 74%. Plethysmography: The total lung capacity is 3.75 L, 74% predicted. The functional residual capacity is 2.06 L, 71% predicted. The residual volume is 1.97 L, 92% predicted. Diffusion capacity: The diffusing capacity unadjusted for hemoglobin and carbox yhemoglobin is 15.5, 74% predicted. The diffusing capacity adjusted for alveolar volume is 4.78, 110% predicted. In comparison to previous pulmonary function testing on 03/29/2022 the post bronchodilator FVC is unchanged from 2.01 L to 1.84 L. The post bronchodilator FEV1 is unchanged from 1.48 L to 1.35 L. The total lung capacity is unchanged from 3.71 L to 3.75 L. The functional residual capacity is decreased from 2.85 L to 2.06 L. The residual volume is unchanged from 1.70 L to 1.97 L. The diffusing capacity unadjusted for hemoglobin and carboxyhemoglobin is increased from 9.6 to 15.5. The diffusing capacity adjusted for alveolar volume is decreased from 5.85 to 4.78. Impression: There is a combined obstructive and restrictive ventilatory abnormality. There are no guidelines to assign the severity of obstruction and restriction with a combined abnormality. In my opinion, given the moderately concave expiratory flow tracing, mildly decreased FEV1: FVC ratio and mild re strictive abnormality I would state there is a moderate obstructive abnormality and a mild restrictive abnormality resulting in a moderately severe decrease in the FEV1. There is no significant improvement after inhaling a single dose of albuterol as the absolute increase in post bronchodilator FEV1 is less than 200 mL. The diffusing capacity is normal. In comparison to previous pulmonary function testing on 03/29/2022 there has been a greater than anticipated time dependent decrease in the functional residual capacity and diffusing capacity adjusted for alveolar volume. There has been a greater than anticipated time dependent increase in the diffusing capacity unadjusted for hemoglobin and carboxyhemoglobin with no significant change in the FVC, FEV1, total lung capacity or residual volume.
== END 2022-12-19 12:06 | disposition home or self-care (01) ==
LOC: ANHPFT 12:05
PROVIDERS: PCP Family Medicine Adolescent Medicine; Visit Provider Nurse Practitioner Family
DX: R94.2 Abnormal results of pulmonary function studies (principal)
CPT/HCPCS: 94060; 94726; 94729; J7674

== ENCOUNTER 2023-08-11 08:53 | Outpatient (CLI) | payer MEDICARE, SELFPAY ==
--- NOTE | ~2023-08-11 | NM_ITS ---
EXAMINATION: NM travis stress w perfusion DATE: 08/11/2023 11:32 INDICATION: Chest pain. TECHNIQUE: Rest images were obtained following intravenous administration of 10.1 mCi Tc99m tetrofosm in (Myoview). The patient was infused intravenously with Lexiscan (regadenoson). Then, 31.0 mCi Tc99m tetrofosmin (Myoview) was administered intravenously, and stress images were obtained. The patient c ould not perform prone imaging. Data was reconstructed into short axis and horizontal and vertical lo ng axis SPECT images. Gated SPECT images were also obtained. COMPARISON: CT abdomen and pelvis 12/16/2022 FINDINGS: There is a moderate-sized, mild, reversible perfusion defect involving mid to basal anterio r wall and basal anterolateral wall of left ventricle, consistent with ischemia. No reversible compon ent to suggest infarct. There is no segmental wall motion abnormality. Left ventricular ejection fr action measures 68%. IMPRESSION: 1. Moderate-sized area of mild ischemia involving mid to basal anterior wall and basal inferolateral wall of left ventricle. 2. Normal left ventricular ejection fraction measuring 68%. Reviewed, dictated and finalized at location A. IMPRESSION: 1. Moderate-sized area of mild ischemia involving mid to basal anterior wall an d basal inferolateral wall of left ventricle. 2. Normal left ventricular ejection fraction measuring 68%.
--- NOTE | 2023-08-11 09:43 | EST_ITS ---
Patient Info Name: Shona Vazquez Age: 68 years : 1955 Gender: Female Ht: 64 in Wt: 320 lbs BSA: 2.65 m2 HR: 78 bpm BP: 168 / 69 mmHg Exam Date: 08/11/2023 10:39 AM Exam Location: Echo Lab Patient Status: Outpatient Admit Date: 08/11/2023 Staff Ordering Physician: Maru Johnston APRN Attending Provider: Maru Johnston APRN Exercise Technologist: Diamante Brice [facility] Exercise Physician: Arnaldo Dumont DO Exam Type: CA stress travis w NM Study Info A regadenoson stress test was performed. Summary 1. 1. Negative lexiscan stress test for ischemic ST changes by ECG criteria. 2. 2. Baseline hypertension. 3. 3. Nuclear scan to follow and will be reported separately. Please correlate with it. 4. 4. Patient informed of the above results. Protocol: Lexiscan Stress ECG Details Stage: REST Duration (min): 2 min : 32 sec HR (bpm): 74 SBP (mmHg): 205 DBP (mmHg): 69 Stage: REST Duration (min): 6 min : 24 sec HR (bpm): 75 SBP (mmHg): 168 DBP (mmHg): 69 Stage: STAGE 1 Duration (min): 0 min : 59 sec HR (bpm): 89 SBP (mmHg): 168 DBP (mmHg): 69 Stage: RECOVERY Duration (min): 1 min : 0 sec HR (bpm): 87 SBP (mmHg): 143 DBP (mmHg): 67 Stage: RECOVERY Duration (min): 2 min : 0 sec HR (bpm): 85 SBP (mmHg): 143 DBP (mmHg): 67 Stage: RECOVERY Duration (min): 2 min : 5 sec HR (bpm): 84 SBP (mmHg): 143 DBP (mmHg): 67 Rest HR: 75 bpm Peak HR: 90 bpm Rest Sys BP: 168 mmHg Peak Sys BP: 143 mmHg Max Pred HR: 152 bpm % Max Pred HR: 59 % Target HR: 129 bpm Max RPP: 12,870 bpm*mmHg Termination Reason: Completed protocol Cardiac Symptoms: Shortness of breath Total Time: 1 min : 0 sec Rest Chowdhury BP: 69 mmHg Peak Chowdhury BP: 67 mmHg Total Dose: 0.4 mg Resting ECG Sinus rhythm. Stress ECG No ST changes. Arrhythmias None. Report Signatures
== END 2023-08-11 08:54 | disposition home or self-care (01) ==
PROVIDERS: PCP Family Medicine Adolescent Medicine; Visit Provider Nurse Practitioner Family
DX: I25.9 Chronic ischemic heart disease, unspecified (principal); I10 Essential (primary) hypertension
CPT/HCPCS: 78452; 93017; A9502; J2785

== ENCOUNTER 2023-10-23 12:20 | Outpatient (CLI) | payer MEDICARE, SELFPAY ==
--- NOTE | 2023-10-23 12:35 | ECHO_ITS ---
Patient Info Name: Shona Vazquez Age: 68 years : 1955 Gender: Female Ht: 64 in Wt: 320 lbs BSA: 2.65 m2 HR: 75 bpm BP: 108 / 97 mmHg Heart Rhythm: Sinus Rhythm Technical Quality: Good Exam Date: 10/23/2023 12:57 PM Exam Location: Echo Lab Patient Status: Outpatient Admit Date: 10/23/2023 Staff Ordering Physician: Arnaldo Dumont DO Aircraft Magneto Mechanic: Yfn Brody RDCS Attending Provider: Arnaldo Dumont DO Referring Physician: Tim MONTEMAYOR; Exam Type: CA echo doppler color flow Study Info Indications - localize edema Complete two-dimensional, color flow and Doppler transthoracic echocardiogram is performed. Summary 1. Complete two-dimensional, color flow and Doppler transthoracic echocardiogram is performed. 2. Left ventricular chamber dimension is normal. 3. Left ventricular systolic function is normal, estimated at 60-65%. 4. The left ventricular diastolic function is grade I diastolic dysfunction. 5. E/e' 11 is mildly elevated. 6. There is trace tricuspid valve regurgitation. 7. Mild pulmonary hypertension, estimated pulmonary arterial systolic pressure is 46 mmHg. Left Ventricle E/e' 11 is mildly elevated. Left ventricular chamber dimension is normal. Left ventricular systolic function is normal, estimated at 60-65%. The left ventricular diastolic function is grade I diastolic dysfunction. Right Ventricle Right ventricular systolic function is normal and with normal TAPSE 2.5 cm. Right ventricular chamber dimension is normal. Left Atria Left atrial chamber dimension is normal. Right Atria Right atrial chamber dimension is normal. Aortic Valve The aortic valve is trileaflet. There is no aortic valve stenosis. There is no aortic valve regurgitation. Pulmonic Valve There is no pulmonic regurgitation. Mitral Valve There is no mitral valve stenosis. There is no mitral valve regurgitation. Tricuspid Valve There is trace tricuspid valve regurgitation. Mild pulmonary hypertension, estimated pulmonary arterial systolic pressure is 46 mmHg. Pericardium/Pleural There is no pericardial effusion. Inferior Vena Cava Normal inferior vena cava with >50% collapse upon inspiration consistent with normal right atrial pressure, 5 mmHg. Aorta The aortic root size at the sinus of Valsalva is normal. Left Ventricular Outflow Tract Name Value Normal LVOT 2D LVOT Diameter 2.0 cm LVOT Doppler LVOT Peak Gradient 5 mmHg LVOT Mean Gradient 3 mmHg LVOT VTI 26 cm LVOT VTI/AV VTI Ratio 0.8 LVOT Stroke Volume 79 ml LVOT CO 7.8 l/min LVOT CI 2.9 l/min/m2 Pulmonic Valve Name Value Normal PV Doppler PV Peak Gradient 4 mmHg Mitral Valve Name
== END 2023-10-23 12:21 | disposition home or self-care (01) ==
PROVIDERS: PCP Family Medicine Adolescent Medicine; Visit Provider Internal Medicine Cardiovascular Disease
DX: R60.0 Localized edema (principal); I51.89 Other ill-defined heart diseases; I27.20 Pulmonary hypertension, unspecified; I51.7 Cardiomegaly
CPT/HCPCS: 93306

== ENCOUNTER 2023-10-24 08:22 | Day surgery (SDC) | payer MEDICARE, SELFPAY ==
[2023-10-10 15:14] VITALS: BMI 50.0
[2023-10-24] VITALS (14 sets, daily range): BP systolic 113–173; BP diastolic 60–118; PULSE 78–90; RESP 18–22; TEMP 36.1–36.2; O2SAT 90–96; BMI 56.3
[2023-10-24 09:06] LABS: Basophils Absolute Auto 0.1 K/mm3 (0.0-0.1); Eosinophils Absolute Auto 0.6 K/mm3 (0-0.3); Hematocrit 37.2 % (37.0-47.0); Hemoglobin 11.5 g/dL (12.0-15.0); Immature Granulocyte Absolute 0.01 K/mm3 (0.00-0.031); Immature Granulocyte Percent A 0.1 % (0-0.5); Lymphocytes Absolute Auto 1.65 K/mm3 (0.9-3.2); Lymphocytes Percent Auto 23.5 % (18.3-44.2); Mean Corpuscular HGB Conc 30.9 g/dl (32-36); Mean Corpuscular Hemoglobin 28.7 pg (26-34); Mean Corpuscular Volume 92.8 fl (80-100); Mean Platelet Volume 10.6 fl (7.4-10.4); Monocytes Absolute Auto 0.5 K/mm3 (0.1-0.6); Monocytes Percent Auto 6.7 % (2.6-8.5); Neutrophils Absolute Auto 4.2 K/mm3 (1.3-6.7); Neutrophils Percent Auto 59.7 % (45.5-73.1); Platelet Count Result 207 k/mm3 (150-375); Red Blood Count 4.01 M/mm3 (4.2-5.4); Red Cell Distribution Width 14.2 % (11.5-14.5)
[2023-10-24 09:15] LABS: Anion Gap 7 mmol/L (4-12); Blood Urea Nitrogen 17 mg/dL (7-17); Calcium 8.7 mg/dL (8.4-10.2); Carbon Dioxide 34 mmol/L (22-30); Chloride 99 mmol/L (98-107); Estimated CRCL calculation 85 ml/min; Estimated Glomerular Filt Rate > 60; Glucose 138 mg/dL (65-110); Potassium 4.3 mmol/L (3.4-5.0); Sodium 140 mmol/L (137-145)
[2023-10-24] MEDS: SODIUM CHLORIDE 0.9% IV 500 ML 100 ML IV CONT (09:50)
--- NOTE | 2023-10-24 10:38 | PM.IMHP ---
H&P: HPI History of Present Illness Date/Time: 10/24/23 10:38 Chief Complaint: [facility] Narrative: Patient is a 68 year old female with diabetes mellitus, hypertension, dyslipidemia, BALBINA, COPD who is referred for [facility] by Dr. Dumont for abnormal stress test showing moderate ischemia in the mid-basal anterior and basal inferolateral segments. Review of Systems Review of Systems: All systems reviewed & are unremarkable except as noted in HPI and below (HPI) PMFSH Past Medical History Medical History Arterial insufficiency of lower extremity Arthritis Burning pain when urinating Cellulitis Constipation Diabetes Diarrhea Dizziness Glaucoma History of COVID-19 Hypertension Long-term use of aspirin therapy Mild persistent asthma Peripheral neuropathy due to metabolic disorder Pneumonia Posterior vitreous detachment of both eyes Primary open-angle glaucoma, bilateral, mild stage Pseudophakia, both eyes Rheumatoid arthritis Type 2 diabetes mellitus with polyneuropathy Venous stasis dermatitis of both lower extremities Vertigo Vision abnormalities Weight gain Surgical History Surgical History H/O: hysterectomy History of cataract surgery History of cholecystectomy History of left knee surgery TKA 2009 History of right knee surgery TKA 2007 Family History Family History Father Family history of cardiovascular disease Heart disease Father Vascular insufficiency Mother Arthritis Cerebrovascular accident Malignant neoplasm Sibling Diabetes mellitus Malignant neoplasm Sibling Diabetes mellitus Other Hypertension Social History Social History Smoking status: Never smoker Second hand tobacco smoke exposure: No Alcohol intake: never Substance use: never Substance use type: does not use Lack of Transportation: No Lack of Food: Never True Current Housing: I Have Housing Concerned About Future Housing: No Difficulty Paying Gas/Electric Bills: No Difficulty Paying for Meds: No Currently Unemployed: No Education: High School Diploma/GED Difficulty w/ Childcare or Family Care: No Living arrangements: with family Occupation/Education: retired Gender identity (if verbalized by the patient): Female Sexual Orientation (if Verbalized by the Patient): Straight or Heterosexual Spiritual care concerns: No Agree to blood products: Yes Meds Home Medications and Allergies Home Medications Medication Instructions Recorded Confirmed Type aspirin 81 mg tablet,delayed 81 mg PO DAILY 04/23/21 10/24/23 History release (Adult Low Dose Aspirin) hydroxychloroquine 200 mg tablet 200 mg PO BID 04/23/21 10/24/23 History blood sugar diagnostic (Blood #50 ea 04/11/22 09/15/23 Rx Glucose Test strips) blood-glucose meter (Blood Glucose #1 ea 04/11/22 09/15/23 Rx Monitoring kit) lancets 33 gauge #100 ea 09/30/22 09/15/23 Rx triamcinolone acetonide 0.1 % 1 applic topical BID PRN stasis 10/14/22 10/10/23 Rx topical cream dermatitis #453.6 grams valsartan 160 mg tablet See Rx Instructions .Route 11/04/22 10/24/23 Rx .COMPLEX #90 tabs atorvastatin 20 mg tablet 20 mg PO QHS #90 tabs 12/07/22 10/24/23 Rx hydrochlorothiazide 12.5 mg tablet 12.5 mg PO DAILY #90 tabs 12/07/22 10/24/23 Rx albuterol sulfate 90 mcg/actuation 1 inh inhalation Q4H PRN shortness 01/25/23 10/10/23 Rx aerosol inhaler of breath or wheezing #6.7 grams pantoprazole 40 mg tablet,delayed 40 mg PO DAILY #90 tabs 02/26/23 10/24/23 Rx release montelukast 10 mg tablet 10 mg PO QHS #90 tabs 04/05/23 10/24/23 Rx glimepiride 2 mg tablet See Rx Instructions .Route 04/12/23 10/24/23 Rx .COMPLEX #90 tabs ondansetron HCl 4 mg tablet 4 mg PO Q8H PRN nausea and 05/15/23 10/10/23 Rx vomiting #10 tabs tra
--- NOTE | 2023-10-24 10:40 | WPDMODSED ---
Moderate Sedation Note-Pt Data Patient Data Diagnosis: Coronary artery disease Present Complaint: Coronary artery disease Procedure to be performed/Plan: Coronary angiography, left heart cath, +/- PCI Allergies Allergy/AdvReac Type Severity Reaction Status Date / Time amlodipine Allergy Mild periorbital Verified 10/24/23 08:48 blisters and blurry vision Home Medications Medication Instructions Recorded Confirmed Type aspirin 81 mg tablet,delayed 81 mg PO DAILY 04/23/21 10/24/23 History release (Adult Low Dose Aspirin) hydroxychloroquine 200 mg tablet 200 mg PO BID 04/23/21 10/24/23 History blood sugar diagnostic (Blood #50 ea 04/11/22 09/15/23 Rx Glucose Test strips) blood-glucose meter (Blood Glucose #1 ea 04/11/22 09/15/23 Rx Monitoring kit) lancets 33 gauge #100 ea 09/30/22 09/15/23 Rx triamcinolone acetonide 0.1 % 1 applic topical BID PRN stasis 10/14/22 10/10/23 Rx topical cream dermatitis #453.6 grams valsartan 160 mg tablet See Rx Instructions .Route 11/04/22 10/24/23 Rx .COMPLEX #90 tabs atorvastatin 20 mg tablet 20 mg PO QHS #90 tabs 12/07/22 10/24/23 Rx hydrochlorothiazide 12.5 mg tablet 12.5 mg PO DAILY #90 tabs 12/07/22 10/24/23 Rx albuterol sulfate 90 mcg/actuation 1 inh inhalation Q4H PRN shortness 01/25/23 10/10/23 Rx aerosol inhaler of breath or wheezing #6.7 grams pantoprazole 40 mg tablet,delayed 40 mg PO DAILY #90 tabs 02/26/23 10/24/23 Rx release montelukast 10 mg tablet 10 mg PO QHS #90 tabs 04/05/23 10/24/23 Rx glimepiride 2 mg tablet See Rx Instructions .Route 04/12/23 10/24/23 Rx .COMPLEX #90 tabs ondansetron HCl 4 mg tablet 4 mg PO Q8H PRN nausea and 05/15/23 10/10/23 Rx vomiting #10 tabs tramadol 50 mg tablet 50 mg PO QID PRN pain #60 tabs 04/02/24 07/09/24 Rx fluticasone propionate 50 2 spray intranasal BID #16 mL 07/12/23 10/24/23 Rx mcg/actuation nasal spray,suspension (Flonase Allergy Relief) nortriptyline 10 mg capsule 10 mg PO QHS 09/07/23 10/24/23 History benzonatate 200 mg capsule See Rx Instructions .Route 09/25/23 10/10/23 Rx .COMPLEX #30 caps pregabalin 200 mg capsule 200 mg PO TID #90 caps 10/12/23 10/24/23 Rx budesonide-formoterol HFA 160 See Rx Instructions .Route 10/22/23 10/24/23 Rx mcg-4.5 mcg/actuation aerosol .COMPLEX #11 grams inhaler (Breyna) Current Medications: Active Medications Sodium Chloride (Normal Saline Iv) 500 mls @ 100 mls/hr IV CONT .Q5H [place]ORENC[place] Sodium Chloride (Normal Saline Iv) 500 mls @ 100 mls/hr IV CONT .Q5H [place] Sedation/Anesthesia: No previous sedation/anesthesia problems (including family history). [facility] Past Medical History Medical History Arterial insufficiency of lower extremity Arthritis Burning pain when urinating Cellulitis Constipation Diabetes Diarrhea Dizziness Glaucoma History of COVID-19 Hypertension Long-term use of aspirin therapy Mild persistent asthma Peripheral neuropathy due to metabolic disorder Pneumonia Posterior vitreous detachment of both eyes Primary open-angle glaucoma, bilateral, mild stage Pseudophakia, both eyes Rheumatoid arthritis Type 2 diabetes mellitus with polyneuropathy Venous stasis dermatitis of both lower extremities Vertigo Vision abnormalities Weight gain Surgical History Surgical History H/O: hysterectomy History of cataract surgery History of cholecystectomy History of left knee surgery TKA 2009 History of right knee surgery TKA 2006 Family History Family History Father Family history of cardiovascular disease Heart disease Father Vascular insufficiency Mother Arthritis Cerebrovascular accident Malignant neoplasm Sibling Diabetes mellitus Malignant neoplasm Sibling Diabetes mellitus Other Hypertension Social History Social History (Rev
--- NOTE | 2023-10-24 10:41 | WPDCARDPROC ---
Cardiac Cath Procedure Note Date of procedure:: 10/24/23 Performing physician:: CATHETERIZATION LABORATORY REPORT Procedure Date: 10/24/2023 Performance Improvement Manager: Medina Ny M.D., [facility]? Referring Physician: Arnaldo Dumont M.D. ? Anesthesia: Versed and Fentanyl were ordered and given in my presence at 10:51, procedure ended at 11:13. Supervision of nurse monitored moderate sedation with Versed and Fentanyl was provided for 21 minutes. Total of Versed 1mg and Fentanyl 50mcg were administered by the Lead Customer Service Representative RN Selena Malin. Pre-op Diagnosis: Coronary artery disease Post-op Diagnosis: 1. No obstructive coronary artery disease. Coronary arteries angiographically appear normal. 2. Elevated left ventricular end-diastolic pressure of 36mmHg Procedure(s): 1. Moderate sedation 2. Ultrasound-guided access of the right radial artery 3. Coronary angiography 4. Left heart catheterization Access Site: Right radial artery Brief History and Clinical Indications: Patient is a 68 year old female with diabetes mellitus, hypertension, hyperlipidemia, BALB[place], COPD, morbid obesity who is referred for [facility] for abnormal nuclear stress test. All risks, benefits and alternatives to left heart catheterization with or without percutaneous coronary intervention was discussed at length with the patient. Risk of complications including but not limited to bleeding, infection, arrhythmia, stroke, worsening kidney function, blood loss, groin hematoma, limb loss, emergency coronary artery bypass grafting, and even were discussed with the patient and all questions were answered. The patient understood and wished to proceed. Time out called, patient name, date of , medical record number, allergies, procedure performed, identify Performance Improvement Manager, patient and staff member concurred with accurate data, procedure carried on. Findings: LEFT HEART CATHETERIZATION FINDINGS: 1. Left main: Large caliber vessel. The left main is long. The left main coronary artery is widely patent without any significant obstructive disease. 2. Left anterior descending: The LAD and the diagonal branches have mild luminal irregularities without any significant obstructive angiographic disease. 3. Left circumflex: The left circumflex artery and the main marginal branches have mild luminal irregularities without any significant obstructive angiographic disease. 4. Right coronary artery: The RCA has mild luminal irregularities without any significant obstructive angiographic disease. The RCA is the dominant vessel. 5. Left ventricle: A. End-diastolic pressure 36 mmHg. B. LV gram deferred. C. No significant gradient across aortic valve on catheter pullback. Description of Procedure: Informed consent signed and placed in the chart. Patient transferred to labor supervisor room. Prepped and draped in usual sterile fashion. 2% lidocaine injected subcutaneously in right wrist area. 22-gauge venipuncture catheter used to access the right radial artery under ultrasound guidance. 6-FR slender sheath placed in right radial artery. Nitroglycerine and Verapamil were given intraarterial through the sheath. Versacore wire advanced under fluoroscopy 5F Tig 4 diagnostic catheter engaged Left Main Coronary Artery. 5F Tig 4 diagnostic catheter engaged Right Coronary Artery Multiple orthogonal angiogram obtained and reviewed 5F Pigtail diagnostic catheter crossed aortic valve to obtain LVEDP, LV angiogram deferred. Hemostasis was achieved by application of TR band. Post Operative Condition: Stable No significant blood loss Disposition: Home Plan: The patient will be monitored in the recovery area. Discharge home after post cath bed rest is completed. The above findings were discussed with the referring physician. Continue aggressive medical therapy and risk factor modification. ? Medina Ny M.D. Interventional Cardiology
== END 2023-10-24 15:45 | disposition home or self-care (01) ==
PROVIDERS: PCP Family Medicine Adolescent Medicine; Visit Provider Internal Medicine
PROC: 4A023N7 Measurement of Cardiac Sampling and Pressure, Left Heart, Percutaneous Approach (ICD-10-PCS; CPT 93452; principal; 2023-10-24 10:00)
DX: R94.39 Abnormal result of other cardiovascular function study (principal); I10 Essential (primary) hypertension; E11.42 Type 2 diabetes mellitus with diabetic polyneuropathy; I87.8 Other specified disorders of veins; J45.30 Mild persistent asthma, uncomplicated; J44.9 Chronic obstructive pulmonary disease, unspecified; G47.33 Obstructive sleep apnea (adult) (pediatric); H40.1131 Primary open-angle glaucoma, bilateral, mild stage; M06.9 Rheumatoid arthritis, unspecified; Z79.82 Long term (current) use of aspirin; Z79.51 Long term (current) use of inhaled steroids; Z79.84 Long term (current) use of oral hypoglycemic drugs
CPT/HCPCS: 36415; 80048; 85025; 93458; C1769; C1887; C1894; J1644; J2250; J2305; J3010; J7040

== ENCOUNTER 2024-03-20 01:20 | Day surgery (SDC) | payer MEDICARE, SELFPAY ==
[2024-03-08 08:48] VITALS: BMI 51.5
[2024-03-20 09:45] VITALS: BP 174/84; PULSE 90; RESP 22; TEMP 35.9; O2SAT 95; BMI 55.8
[2024-03-20] MEDS: LACTATED RINGERS 1,000 ML 150 ML IV CONT (09:58)
[2024-03-20 10:01] LABS: Glucose Point of Care 148 mg/dl (65-105)
--- NOTE | 2024-03-20 10:12 | PM.IMHP ---
H&P: HPI History of Present Illness Date/Time: 03/20/24 10:12 Chief Complaint: Intermittent dysphagia -screening colonoscopy. Narrative: The patient has a longstanding history of intermittent dysphagia exclusively to solids. There is occasional heartburn, no more than once a week. There is no unintentional weight loss, vomiting, nausea, hematemesis or dysphagia to liquids. In addition, patient has never had a screening colonoscopy and is referred for that purpose. Review of Systems Review of Systems: All systems reviewed & are unremarkable except as noted in HPI and below PMFSH Past Medical History Medical History Arterial insufficiency of lower extremity Arthritis Burning pain when urinating Cellulitis Constipation Diabetes Diarrhea Dizziness Glaucoma History of COVID-19 Hypertension Long-term use of aspirin therapy Mild persistent asthma Peripheral neuropathy due to metabolic disorder Pneumonia Posterior vitreous detachment of both eyes Primary open-angle glaucoma, bilateral, mild stage Pseudophakia, both eyes Rheumatoid arthritis Type 2 diabetes mellitus with polyneuropathy Venous stasis dermatitis of both lower extremities Vertigo Vision abnormalities Weight gain Surgical History Surgical History H/O: hysterectomy History of cataract surgery History of cholecystectomy History of left knee surgery TKA 2009 History of right knee surgery TKA 2006 Family History Family History Father Family history of cardiovascular disease Heart disease Father Vascular insufficiency Mother Arthritis Cerebrovascular accident Malignant neoplasm Sibling Diabetes mellitus Malignant neoplasm Sibling Diabetes mellitus Other Hypertension Social History Social History (Updated 03/07/24 @ 09:51 by Jonna Ramirez MA) Smoking status: Never smoker Second hand tobacco smoke exposure: No Alcohol intake: never Substance use: never Substance use type: does not use Current Housing: Decline to Answer Concerned About Future Housing: Decline to Answer Difficulty Paying Gas/Electric Bills: Decline to Answer Difficulty Paying for Meds: Decline to Answer Currently Unemployed: Decline to Answer Education: Decline to Answer Difficulty w/ Childcare or Family Care: Decline to Answer Living arrangements: with family Occupation/Education: retired Gender identity (if verbalized by the patient): Female Sexual Orientation (if Verbalized by the Patient): Straight or Heterosexual Spiritual care concerns: No Agree to blood products: Yes Meds Home Medications and Allergies Home Medications ?Medication ?Instructions ?Recorded ?Confirmed ?Type hydroxychloroquine 200 mg tablet 200 mg PO BID 04/23/21 03/20/24 History blood sugar diagnostic (Blood #50 ea 04/11/22 03/08/24 Rx Glucose Test strips) blood-glucose meter (Blood Glucose #1 ea 04/11/22 03/08/24 Rx Monitoring kit) lancets 33 gauge #100 ea 09/30/22 03/08/24 Rx nortriptyline 10 mg capsule 10 mg PO QHS 09/07/23 03/20/24 History pantoprazole 40 mg tablet,delayed 40 mg PO DAILY #90 tabs 10/26/23 03/20/24 Rx release atorvastatin 20 mg tablet 20 mg PO QHS #90 tabs 11/23/23 03/20/24 Rx montelukast 10 mg tablet See Rx Instructions .Route 12/05/23 03/20/24 Rx .COMPLEX #90 tabs glimepiride 2 mg tablet See Rx Instructions .Route 01/01/24 03/20/24 Rx .COMPLEX #90 tabs pregabalin 200 mg capsule 200 mg PO TID #90 caps 01/14/24 03/20/24 Rx albuterol 90 mcg-budesonide 80 2 inh inhalation ONCE #5.9 grams 02/07/24 03/20/24 Rx mcg/actuation HFA aerosol inhaler (Airsupra) budesonide 160 mcg-glycopyr 9 2 inh inhalation BID #5.9 grams 02/07/24 03/20/24 Rx mcg-formot 4.8 mcg/actuation HFA inhaler (Breztri Aerosphere) valsartan 160 mg tablet 160 mg PO DAILY 03/08/24 03/20/24 History Allergies Allergy/AdvReac Type Severity Reaction Status Date / Time amlodipine Allergy Mild periorbital Verified 03/20/24 09:40 blisters and blurry vision Vital Signs Vital Signs - 24 hr 03/20/24 09:45 Temperature 96.6 F L Pulse Rate 90 Respiratory Rate 22 H Blood Pressure 174/84 H Pulse Oximetry 95 Oxygen Delivery Room Air Exam Const: General: cooperative and healthy appearing Resp: Effort & Inspection: normal respiratory effort and able to speak in complete sentences Auscultation: clear to auscultation bilaterally Cardio: Rate: regular rate Rhythm: regular rhythm GI: Inspection: normal to inspection GI Palp: No No hepatosplenomegaly present Auscultation: normal bowel sounds Rectal Exam: deferred Skin: General skin exam: normal color Psych: Appearance: grossly normal Mental Status: mental status grossly normal Assessment and Plan Assessment and plan (1) Dysphagia: Code(s): R13.10 - Dysphagia, unspecified Status: Acute Assessment and Plan: Differential diagnosis in her particular case includes Schatzki ring, and, less likely eosinophilic esophagitis. Will proceed with EGD and if a stricture or ring is found we will proceed to dilating. The patient is deemed a good candidate for both procedures, EGD and colonoscopy. Consent signed. Will proceed. (2) Encounter for screening colonoscopy: Code(s): Z12.11 - Encounter for screening for malignant neoplasm of colon Status: Acute
--- NOTE | 2024-03-20 10:23 | P.PNAN_ITS ---
Anes - Initial Pre Proc Eval Procedure: Operation Date: 03/20/24 10:30 Proposed Procedures p Esophagogastroduodenoscopy & Colonoscopy - Cole Tao MD Date/Time: 03/20/24 10:23 Surgeon: Cole Tao MD Pre Op Diagnosis: Change in Bowel Habits/ Heartburn Patient Data Age: 68 Gender: F Height: 1.63 m Weight: 147.7 kg Last Vital Signs Temp 35.9 C L 03/20/24 09:45 Pulse 90 03/20/24 09:45 Resp 22 H 03/20/24 09:45 BP 174/84 H 03/20/24 09:45 Pulse Ox 95 03/20/24 09:45 O2 Del Method Room Air 03/20/24 09:45 Allergies Allergy/AdvReac Type Severity Reaction Status Date / Time amlodipine Allergy Mild periorbital Verified 03/20/24 09:40 blisters and blurry vision Home Medications ?Medication ?Instructions ?Recorded ?Confirmed ?Type hydroxychloroquine 200 mg tablet 200 mg PO BID 04/23/21 03/20/24 History blood sugar diagnostic (Blood #50 ea 04/11/22 03/08/24 Rx Glucose Test strips) blood-glucose meter (Blood Glucose #1 ea 04/11/22 03/08/24 Rx Monitoring kit) lancets 33 gauge #100 ea 09/30/22 03/08/24 Rx nortriptyline 10 mg capsule 10 mg PO QHS 09/07/23 03/20/24 History pantoprazole 40 mg tablet,delayed 40 mg PO DAILY #90 tabs 10/26/23 03/20/24 Rx release atorvastatin 20 mg tablet 20 mg PO QHS #90 tabs 11/23/23 03/20/24 Rx montelukast 10 mg tablet See Rx Instructions .Route 12/05/23 03/20/24 Rx .COMPLEX #90 tabs glimepiride 2 mg tablet See Rx Instructions .Route 01/01/24 03/20/24 Rx .COMPLEX #90 tabs pregabalin 200 mg capsule 200 mg PO TID #90 caps 01/14/24 03/20/24 Rx albuterol 90 mcg-budesonide 80 2 inh inhalation ONCE #5.9 grams 02/07/24 03/20/24 Rx mcg/actuation HFA aerosol inhaler (Airsupra) budesonide 160 mcg-glycopyr 9 2 inh inhalation BID #5.9 grams 02/07/24 03/20/24 Rx mcg-formot 4.8 mcg/actuation HFA inhaler (Breztri Aerosphere) valsartan 160 mg tablet 160 mg PO DAILY 03/08/24 03/20/24 History Laboratory Tests 03/20/24 09:51 POC Capillary Glucose 148 H mg/dl (65-105) Patient hx anesthesia problems: none Family hx anesthesia problems: none Results Review: All pre-operative results and documents have been reviewed as part of the pre- operative evaluation. [facility] Past Medical History Medical History History of COVID-19 Rheumatoid arthritis Mild persistent asthma Long-term use of aspirin therapy Posterior vitreous detachment of both eyes Pseudophakia, both eyes Hypertension Primary open-angle glaucoma, bilateral, mild stage Type 2 diabetes mellitus with polyneuropathy Arthritis Cellulitis Diabetes Burning pain when urinating Diarrhea Constipation Pneumonia Vision abnormalities Vertigo Dizziness Weight gain Glaucoma Venous stasis dermatitis of both lower extremities Arterial insufficiency of lower extremity Peripheral neuropathy due to metabolic disorder Surgical History Surgical History History of cataract surgery History of cholecystectomy History of left knee surgery TKA 2008 History of right knee surgery TKA 2006 H/O: hysterectomy Family History Family History Father Family history of cardiovascular disease Heart disease Father Vascular insufficiency Mother Arthritis Cerebrovascular accident Malignant neoplasm Sibling Diabetes mellitus Malignant neoplasm Sibling Diabetes mellitus Other Hypertension Social History Social History Smoking status: Never smoker Second hand tobacco smoke exposure: No Alcohol intake: never Substance use: never Substance use type: does not use Current Housing: Decline to Answer Concerned About Future Housing: Decline to Answer Difficulty Paying Gas/Electric Bills: Decline to Answer Difficulty Paying for Meds: Decline to Answer Currently Unemployed: Decline to Answer Education: Decline to Answer Difficulty w/ Childcare or Family Care: Decline to Answer Living arrangements: with family Occupation/Education: retired Gender identity (if verbalized by the patient): Female Sexual Orientation (if Verbalized by the Patient): Straight or Heterosexual Spiritual care concerns: No Agree to blood products: Yes Anes - Eval Final PreProcedure Day of Procedure 03/20/24 10:23 Patient weight: super morbidly obese Heart: regular rate and rhythm Lungs: decreased breath sounds Airway: Mallampati scale class III and special considerations poor opening Neurological: alert and oriented Last oral intake: >/= 8 hours ASA classification: III Emergent: no Anesthetic plan: proceed Anesthesia type and monitoring: general GIVS and standard monitoring Results Review: All pre-operative results and documents have been reviewed as part of the pre- operative evaluation. Informed Consent: The patient's anesthetic plan and its attendant risks and benefits were discussed with the patient/family/POA. Questions were solicited and answers provided to the satisfaction of the patient/family/POA.
--- NOTE | 2024-03-20 11:16 | SUR.OPER ---
EGD [id number]. Colonoscopy start time 1119.
[2024-03-20] MEDS: SIMETHICONE ORAL SUSPENSION 20 MG/0.3 ML 30 ML BOTTLE 0.6 ML IRRIGATION (11:27)
[2024-03-20 11:44] VITALS: BP 128/59; PULSE 87; RESP 25; O2SAT 100
[2024-03-20 11:54] VITALS: BP 142/66; PULSE 83; RESP 23; O2SAT 100
[2024-03-20 12:04] VITALS: BP 152/76; PULSE 82; RESP 25; O2SAT 100
== END 2024-03-20 12:33 | disposition home or self-care (01) ==
PROVIDERS: PCP Family Medicine Adolescent Medicine; Referring Provider Nurse Practitioner Family; Visit Provider Internal Medicine Gastroenterology
PROC: 0DJ08ZZ Inspection of Upper Intestinal Tract, Via Natural or Artificial Opening Endoscopic (ICD-10-PCS; CPT 43235; principal; 2024-03-20 10:30)
DX: Z12.11 Encounter for screening for malignant neoplasm of colon (principal); D12.2 Benign neoplasm of ascending colon; R13.10 Dysphagia, unspecified; K29.30 Chronic superficial gastritis without bleeding; E11.42 Type 2 diabetes mellitus with diabetic polyneuropathy; E66.01 Morbid (severe) obesity due to excess calories; Z68.43 Body mass index [BMI] 50.0-59.9, adult
CPT/HCPCS: 43239; 45385; 82948; 88305; J2003; J2371; J2704; J7120

== ENCOUNTER 2025-02-10 14:23 | Outpatient (CLI) | payer MEDICARE, SELFPAY ==
--- NOTE | ~2025-02-10 | CT_ITS ---
CT diagnostic chest wo con HISTORY:R05.3 - Chronic cough COMPARISON: None. TECHNIQUE: Axial images of the chest were obtained without infusion of intravenous contrast. Dose optimization technique was utilized. FINDINGS: The examination demonstrates mild groundglass opacity bilaterally. No focal consolidation, pleural effusions or pneumothorax. Cardiac size and mediastinal configuration are normal in appearance. No hilar or mediastinal lymphadenopathy is seen. The thoracic aorta is normal in caliber. Osseous structures are intact. IMPRESSION: Mild groundglass opacities bilaterally. No focal consolidation, pleural effusion or pneumothorax. All CT scans at this facility are performed using low dose modulation techniques as appropriate to perform exam including the following: automated exposure control; use of iterative reconstruction technique; adjustment of the mA and/or kV according to patient size (this includes techniques or standardized protocols for targeted exams where dose is matched to indication/reason for exam). Reviewed, dictated and finalized at location [facility] IMPRESSION: Mild groundglass opacities bilaterally. No focal consolidation, pleural effusion or pneumothorax. All CT scans at this facility are performed using low dose modulation techniqu es as appropriate to perform exam including the following: automated exposure c ontrol; use of iterative reconstruction technique; adjustment of the mA and/or kV according to patient size (this includes techniques or standardized protocol s for targeted exams where dose is matched to indication/reason for exam).
--- OUTSIDE RECORDS SUMMARY | 2025-02-10 14:26 | XMS_ITS | Encounter Summary ---
Author Organization [facility] Address [address] [place] [address] Care Team Providers Care Program Schedule Clerk Name Role Phone Jourdan Moore MD Primary Care Provider + Reason for Visit * Reason Onset Date Comments Medication Issue 08/10/2020 HCQ Encounter Details Date Type Department Care Team (Late st Contact Info) Description 08/10/2020 Telephone [facility] [address] [place] [address] Berenice Jay MD [address] [address] Medication Issue (HCQ) Social History Tobacco Use Types Packs/Day Years Used Date Smoking Tobacco: Former Smokeless Tobacco: Never Alcohol Use Standard Drinks/Week Comments Never 0 (1 standard drink = 0.6 oz pur e alcohol) Comments Unknown Sex and Gender Information Value Date Recorded Sex Assigned at Not on file 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 No / Unsure 07/30/2020 1:15 PM CDT documented as of this encounter Patient Instructions * Patient Instructions* Richar Starkey - 08/10/2020 11:15 AM CDT Pt has questions re her hydroxychlorquine. Please contact pt at [phone] documented in this encounter Miscellaneous Notes * Telephone Encounter - Patty Ordoñez LPN - 08/10/2020 2:51 PM CDT Contacted Patient. Inquiring how long it would take for the HCQ to take effect? Also, when she could start the medication . Her Eye Exam is . Informed anytime after the Eye Exam is completed Patient could start HCQ. It may take 3-4 months before a noticeable difference in her inflammation and pain in her joints. documented in this encounter Plan of Treatment Not on file documented as of this encounter Visit Diagnoses Not on filedocumented in this encounter Care Teams Program Schedule Clerk Relationship Specialty Start Date End Date Jourdan Moore MD [address] [place] [address] PCP - General 04/15/20 documented as of this encounter
--- OUTSIDE RECORDS SUMMARY | 2025-02-10 14:26 | XMS_ITS | Clinical Summary ---
Author Organization [facility] Address [address] [facility] [address] [place] [address] Care Team Providers Care Pathology Tech Name Role Phone Jourdan Moore MD Primary Care Provider + Source Comments [facility],non-owned Affiliates and Associated Physician Practices is amultiple site organization consisting of ambulatory clinics and hospital sitesin [place], [place], [place] and [place]. This disclosure is being madepursuant to the Care Everywhere program and may not contain all information available regarding this patient. Last updated 17.[facility] Allergies No known active allergies Medications * Be aware that medications may not be up to date on this document. Alwaysverify current medications with the patient. PROAIR HFA 108 (90 Base) MCG/ACT inhaler Inhale 2 puffs by mouth every 4 hours as needed 0 Active SYMBICORT 160-4.5 MCG/ACT inhaler Inhale 2 puffs by mouth 2 times daily 0 Active aspirin EC (ECOTRIN) 81 MG tablet 81 mg once daily Active diclofenac sodium EC (VOLTAREN) 75 MG tablet Take 75 mg by mouth 2 times daily 0 Active metFORMIN ER 24hr (GLUCOPHAGE XR) 500 MG tablet Take 1,000 mg by mouth once daily 0 Active mometasone-form oterol (DULERA) 200-5 MCG/ACT inhaler Inhale 2 puffs by mouth 2 times daily 0 Active pregabalin (LYRICA) 200 MG capsule Take 200 mg by mouth 1 Active traMADol (ULTRAM) 50 MG tablet 50 mg every 6 hours Active glimepiride (AMARYL) 1 MG tablet Take 1 mg by mouth daily with breakfast 2 Active losartan (COZAAR) 50 MG tablet Take 50 mg by mouth once daily 1 Active valsartan (DIOVAN) 160 MG tablet Take 160 mg by mouth once daily 2 Active amLODIPine (NORVASC) 2.5 MG tablet Take 2.5 mg by mouth once daily 2 Active furosemide (LASIX) 20 MG tablet Take 20 mg by mouth once daily 2 Active ipratropium (ATROVENT) 0.06 % nasal spray Lucas 2 sprays into each nostril 4 times daily as needed after meals/at bedtime 2 Active methotrexate 2.5 MG tabletIndicatio ns:Rheumatoid Arthritis start as 5 pills once a week and after 2 weeks increase to 7 pills weekly. Reasons: Rheumatoid Arthritis 28 tablet 2 2 Active folic acid (FOLVITE) 1 MG tablet Take 1 (one) tablet by mouth once daily 90 tablet 4 2 Active hydroxychloroqu ine (Plaquenil) 200 MG tabletIndicatio ns:Rheumatoid arthritis involving multiple sites with positive rheumatoid factor (HCC) Take 1 tablet by mouth twice daily 180 tablet 5 Active Active Problems Problem Noted Date Diagnosed Date Rheumatoid arthritis with positive rheumatoid fa ctor 08/04/2020 Family History Medical History Relation Name Comments Arthritis - Osteo Mother Relation Name Status Comments Mother Social History Tobacco Use Types Packs/Day Years Used Date Smoking Tobacco: Former Smokeless Tobacco: Never Tobacco Cessation:Counseling Given: No Alcohol Use Standard Drinks/Week Comments Never 0 (1 standard drink = 0.6 oz pur e alcohol) PHQ-2 Answer Date Recorded PHQ2 TOTAL SCORE 0 08/04/2021 Comments No Sex and Gender Information Value Date Recorded Sex Assigned at Not on file 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 Gender Identity Not on file Sexual Orientation Not on file Last Filed Vital Signs Vital Sign Reading Time Taken Comments Blood Pressure 134/72 08/04/2021 10:29 AM CDT Pulse 92 08/04/2021 10:29 AM CDT Temperature 36.1 C (97 F) 11/25/2020 10:32 AM CDT Respiratory Rate 17 08/04/2021 10:2 9 AM CDT Oxygen Saturation 90% 08/04/2021 10: 29 AM CDT Inhaled Oxygen Concentration - - Weight 149.1 kg (328 lb 9.6 oz) 022 10:29 AM CDT Height 162.6 cm (5' 4) 08/04/2021 10:2 9 AM CDT Body Mass Index 56.4 08/04/2021 10:29 AM CDT Plan of Treatment Health Maintenance Due Date Last Done Comments BONE DENSITY TESTING 1955 COLOGUARD (AGES 45-75) - COL ON CA SCREENING 1955 COLON MONITORING 1955 COLONOSCOPY - COLON CA SCREENING 1955 CT COLONOGRAPHY - COLON CA SCREENING 1955 Colorectal Cancer Screening 1955 FIT - COLON CA SCREENING 1955 FLEX SIG - COLON CA SCREENING 1955 LIPID TESTING 1955 MAMMOGRAM 1955 COVID-19 VACCINE (#1) 06/03/1960 DTAP/TDAP/TD VACCINES (1 - Tdap) 06/03/1974 PNEUMOCOCCAL VACCINE 50+ (1 of 1 - PCV) 06/03/2005 ZOSTER VACCINE (1 of 2) 06/03/2005 Respiratory Syncytial Virus (RSV) Vaccine Pt: or over 60 yrs (1 - Risk 60-74 years 1-dose series) 2015 SCREENING FOR DIABETES 07/30/2020 DEPRESSION SCREENING 04/03/2024 MEDICARE AWV CALENDAR YEAR 2024 INFLUENZA VACCINE (#1) 2024 HEPATITIS C SCREENING Completed 08/04/2021 HEPATITIS B VACCINE Aged Out No longe r eligible based on patient's age to complete this topic HIB VACCINE Aged Out No longer eligi ble based on patient's age to complete this topic HPV VACCINE Aged Out No longer eligi ble based on patient's age to complete this topic MENINGOCOCCAL (Group B) VACC INE SHARED DECISION-MAKING Aged Out No longer eligibl e based on patient's age to complete this topic MENINGOCOCCAL GROUPS A/C/Y/W VACCINE Aged Out No longer eligible b ased on patient's age to complete this topic Procedures Procedure Name Priority Date/Time Associated Diagnosis Comments HEPATITIS C AB SCREEN RFLX NAAT QUANT Routine 08/04/2021 12:26 PM CDT Need for hepatitis C screening test from Last 3 Months or Most Recently Relevant to Health Maintenance Results * HEPATITIS C AB SCREEN RFLX NAAT QUANT (08/04/2021 12:26 PM CDT) Hepatitis C Antibody Non-react [place] Non-reac tive 08/04/2021 1:35 PM CDT [facility] Comment:Hepatitis C Antibody screen indicates no serologic evidence of past or current infection with Hepatitis C Virus. Patients with unexplained liver disease who are immunocompromised or suspected of having acute Hepatitis C infection may benefit from Nucleic Acid Test (TERENCE) for Hepatitis C Viral RNA to confirm Hepatitis C status. Blood BLOOD SPECIMEN / Unknown Lab Venipuncture / Unknown 08/04/2021 12:26 PM CDT 08/04/2021 12:33 PM CDT Berenice Jay MD LAB - CHEMISTRY ORDERABLES nal Result [facility] [address] [place] [address], [facility] [phone] from Last 3 Months or Most Recently Relevant to Health Maintenance Insurance [employer] ADV [employer] ADV [place] [id number] [employer] MEDICARE ADV SELF PAY NO INSURANCE Member Subscriber Plan / Payer (Ef fective for All Dates) Name:Shona Herron Member ID:Not on file Relation to Subscriber:Not on file Name:SHONA HERRON Subscriber ID:Not on file (Home) Address: [address] [place] [address] Payer ID:Not on file Group ID:Not on file Type:Self Pay Address: [place], [place] [employer]IC[employer] ADV Care Teams Pathology Tech Relationship Specialty Start Date End Date Jourdan Moore MD [address] [place] [id number] PCP - General 04/15/20
--- OUTSIDE RECORDS SUMMARY | 2025-02-10 14:26 | XMS_ITS | Clinical Summary ---
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 Name Role Phone Jourdan Moore MD Primary Care Prov ider Allergies No known active allergies Medications aspirin 81 mg enteric coated tablet 1 tablet (81 mg total) daily Active fluconazole (Diflucan) 100 mg tablet 100 mg 3 (three) times a week Active gabapentin (NEURONTIN) 600 mg tablet 600 mg 3 (three) times a day Active traMADoL (ULTRAM) 50 mg tablet 1 tablet (50 mg total) every 6 (six) hours Active diclofenac DR (VOLTAREN) 75 mg EC tablet Take 1 tablet (75 mg total) by mouth 2 (two) times a day 0 Active furosemide (LASIX) 40 mg tablet Take 1 tablet (40 mg total) by mouth daily 0 Active Dulera 200-5 mcg/actuation inhaler Inhale 2 puffs 2 (two) times a day 0 Active indomethacin (INDOCIN) 50 mg capsule Take 50 mg by mouth 3 (three) times a day 1 Active pregabalin (LYRICA) 200 mg capsule Take 1 capsule (200 mg total) by mouth 3 (three) times a day 1 Active triamcinolone (KENALOG) 0.1 % cream 0 Active glimepiride (AMARYL) 1 mg tablet TAKE 1 TABLET BY MOUTH ONCE DAILY IN THE MORNING WITH BREAKFAST 3 Active hydrOXYchloroQ UINE (PLAQUENIL) 200 mg tablet Take 1 tablet (200 mg total) by mouth 2 (two) times a day [address] (PROTONIX) 40 mg EC tablet Take 1 tablet (40 mg total) by mouth 2 (two) times a day 3 Active valsartan (DIOVAN) 160 mg tablet Take 1 tablet (160 mg total) by mouth daily 3 Active albuterol HFA (ProAir HFA) 90 mcg/actuation inhaler Inhale 2 puffs every 4 (four) hours as needed 0 Active amLODIPine (NORVASC) 2.5 mg tablet Take 1 tablet (2.5 mg total) by mouth daily 2 Active atorvastatin (LIPITOR) 20 mg tablet Take 1 tablet (20 mg total) by mouth nightly at bedtime 4 Active benzonatate (TESSALON) 200 mg capsule TAKE 1 CAPSULE BY MOUTH THREE TIMES DAILY NEEDED FOR COUGH 4 Active Breyna 160-4.5 mcg/actuation inhaler INHALE 2 PUFFS BY MOUTH EVERY [address] (CYMBALTA) 30 mg capsule Take 1 capsule (30 mg total) by mouth daily 4 Active fluticasone propionate (FLONASE) 50 mcg/actuation nasal spray USE 2 SPRAY(S) IN EACH NOSTRIL TWICE DAILY 4 Active folic acid (FOLVITE) 1 mg tablet Take 1 tablet (1 mg total) by mouth daily 2 Active hydroCHLOROthi azide 12.5 mg tablet Take 1 tablet (12.5 mg total) by mouth daily 4 Active ipratropium (ATROVENT) 42 mcg (0.06 %) nasal spray Administer 2 sprays into affected nostril(s) 2 Active losartan (COZAAR) 50 mg tablet Take 1 tablet (50 mg total) by mouth daily 1 Active methotrexate 2.5 mg tablet start as 5 pills once a week and after 2 weeks increase to 7 pills weekly. Reasons: Rheumatoid Arthritis 2 Active montelukast (SINGULAIR) 10 mg tablet Take 1 tablet (10 mg total) by mouth nightly at bedtime 4 Active ondansetron (ZOFRAN) 4 mg tablet Take 1 tablet (4 mg total) by mouth 4 Active glimepiride (AMARYL) 2 mg tablet TAKE 1 TABLET BY MOUTH IN THE MORNING WITH BREAKFAST 4 Active clobetasoL (TEMOVATE) 0.05 % cream APPLY CREAM TOPICALLY TWICE DAILY TO RASH FOR UP TO 4 WEEKS, THEN TAKE A 2 WEEK BREAK (NO FACE) ONCE RESOLVED, THEN USE NEEDED. 4 Active amoxicillin-cl avulanate (AUGMENTIN) 875-125 mg per tablet Take 1 tablet by mouth 4 Active Breztri Aerosphere 160-9-4.8 mcg/actuation inhaler Inhale 2 puffs 2 (two) times a day 4 Active predniSONE (DELTASONE) 20 mg tablet Take 2 tablets (40 mg) by mouth daily 4 Active nortriptyline (PAMELOR) 10 mg capsule Take 1 capsule (10 mg total) by mouth nightly 30 capsule 4 5 07/05/19 26 Active nortriptyline (PAMELOR) 10 mg capsule Take 1 capsule (10 mg total) by mouth nightly 30 capsule 11 4 02/05/20 25 Discontinu ed(Reorder ) Active Problems Problem Noted Date Diagnosed Date Numbness and tingling of right upper extremity 0 12/01/2023 Leg weakness, bilateral 08/01/2022 Plantar fasciitis 04/22/2022 Rheumatoid arthritis with positive rheumatoid fa ctor 08/04/2020 08/22/2022 Class 3 severe obesity due t o excess calories with body mass index (BMI) of 45.0 to 49.9 in adult 01/01/2020 Assessment & Plan (08/25/2022 5:01 PM CDT): Impression: Patient is morbidly obese. Plan: Discussed with the patient the importance of lifestyle modifications to include healthy diet and weight loss exercises. Educated the patient this could potentially help facilitate venous and lymphatic flow throughout bilateral lower extremities and could potentially alleviate her lower extremity edema. Assessment & Plan (05/06/2020 10:23 AM POWDER GUARD): Recommended weight loss exercise and healthy diet. This will help facilitate better venous and lymphatic flow throughout the lower extremities and alleviate lower extremity edema. Type 2 diabetes mellitus wit h diabetic peripheral angiopathy without gangrene, without long-term current use of insulin 01/01/2020 Assessment & Plan (05/06/2020 10:23 AM POWDER GUARD): Diabetes currently controlled. Continue current medical therapy Essential lymphedema 01/01/2020 Assessment & Plan (11/22/2023 11:00 AM CDT): Continue utilizing compression stockings daily along with utilizing lymphedema pumps in the afternoon and in the evenings. Frequent elevation of the legs throughout the day and maintaining a exercise regimen such as walking to help with circulation. Patient states she has been compliant with all the above. Plan: Continue with compression therapy. Cover the small ulcer with triple antibiotic ointment and a bandage follow-up as needed. Assessment & Plan (08/25/2022 5:05 PM CDT): Impression: Patient has chronic lower extremity lymphedema. Lipodermatosclerosis is noted to bilateral anterior calves. No open ulcerations are noted. Patient has significant chronic edema, hyperpigmentation, and swelling from the toes to the groin, has been utilizing compression therapy 20-30 mm of mercury for greater than 4 weeks, leg elevation, and exercise without improvement of symptoms. Plan: Continue utilizing compression stockings and leg elevation for edema control. -recommend evaluation by bio tab for compression pumps. Instructed patient to utilize compression pumps 1 hour daily for edema control. -patient to follow-up on an as-needed basis. Assessment & Plan (05/06/2020 10:23 AM POWDER GUARD): Chronic lower extremity lymphedema. Recommended pneumatic compression daily CircAid knee-high compression and leg elevation. No surgical intervention needed. Varicose veins of both lower extremities with pa in 08/05/2016 Localized edema 08/03/2016 Encounters Date Type Department Care Team Description 02/04/2025 Telephone [facility] Neurology [address] [place] [address] [place] [phone] Miguel Nazario Si, MD Med Refill from Last 3 Months Immunizations Immunization Administration Dates Next Due Influenza, Quadrivalent, Spl it, Preservative Free, Intramuscular 01/24/2020 Surgical History Surgery Date Site/Laterality Comments HYSTERECTOMY REPLACEMENT TOTAL KNEE Right Titanium REPLACEMENT TOTAL KNEE Left Aluminum CATARACT EXTRACTION, BILATERAL CHOLECYSTECTOMY Medical History Medical History Date Comments Diabetes Neuropathy Arthritis Cataract Glaucoma Neuromuscular disorder Family History Medical History Relation Name Comments Allergies Other Cancer Other Hypertension Other Stroke Other Relation Name Status Comments Father Mother Alive Other Social History Tobacco Use Types Packs/Day Years Used Date Smoking Tobacco: Never Cigarettes Smokeless Tobacco: Never Tobacco Cessation:Counseling Given: Not Answered Comments Unknown Sex and Gender Information Value Date Recorded Sex Assigned at Not on file Legal Sex Female 1:09 AM POWDER GUARD Gender Identity Female 08/18/2023 8:14 AM CDT Sexual Orientation Not on file Last Filed Vital Signs Vital Sign Reading Time Taken Comments Blood Pressure 126/72 02/16/2024 10:21 AM POWDER GUARD Pulse 89 02/16/2024 10:21 AM POWDER GUARD Temperature - - Respiratory Rate - - Oxygen Saturation 92% 02/16/2024 10:21 AM POWDER GUARD Inhaled Oxygen Concentration - - Weight 136.1 kg (300 lb) 02/16/2024 10:21 AM POWDER GUARD Height 162.6 cm (5' 4) 02/16/2024 10:21 AM POWDER GUARD Body Mass Index 51.49 02/16/2024 10:21 AM POWDER GUARD Plan of Treatment Health Maintenance Due Date Last Done Comments Albumin Creatinine Ratio, Urine 1955 Breast Cancer Screening-Mammogram 1955 Colon Cancer Screening-Colonoscopy 1955 Depression Screening 1955 Fall Risk Assessment 1955 Hemoglobin A1C 1955 Hepatitis C Screening 1955 Osteoporosis Screening-Bone Density Scan 1955 eGFR 1955 Dilated Eye Exam 1955 Foot Exam 1955 Lipid Panel 1955 DTaP/Tdap/Td Vaccine (1 - Tdap) 06/03/1966 Hepatitis B Screening 06/03/1973 Pneumococcal vaccine 65+ (1 of 2 - PCV) 06/03/1974 Zoster Vaccine (1 of 2) 06/03/1974 Well Visit 65+ 06/03/2020 Influenza Vaccine (#1) 2024 01/24/2020 Insurance T MEDICARE T MEDICARE Care Teams Drop Hammer Set Up Operator Relationship Specialty Start Date End Date Jourdan Moore MD PCP - General 09/18/15
== END 2025-02-10 14:24 | disposition home or self-care (01) ==
PROVIDERS: PCP Family Medicine Adolescent Medicine; Visit Provider Nurse Practitioner Family
DX: R91.8 Other nonspecific abnormal finding of lung field (principal); R05.3 Chronic cough; J40 Bronchitis, not specified as acute or chronic
CPT/HCPCS: 71250